=== PATIENT | female | born 1995 | race African-American/Black ===

== ENCOUNTER 2016-09-08 18:28 | Emergency (ER) | payer OTHER ==
[~2016-09-08 18:28] MED LIST: ACYCLOVIR400 MG PO; NO MEDICATIONS; VOLTAREN75 MG PO
== END 2016-09-08 19:03 | disposition home or self-care (01) ==
LOC: SED 18:28
DX: J02.0 Streptococcal pharyngitis (principal); F17.210 Nicotine dependence, cigarettes, uncomplicated
CPT/HCPCS: 87880; 99283

== ENCOUNTER 2017-02-04 19:35 | Emergency (ER) | payer OTHER ==
[~2017-02-04] VITALS: Ht 157.5 cm; Wt 79.4 kg
[2017-02-04] MEDS ORDERED: VALTREX500 MG (19:43)
== END 2017-02-04 21:04 | disposition home or self-care (01) ==
LOC: SED 19:35
DX: L02.31 Cutaneous abscess of buttock (principal); F17.210 Nicotine dependence, cigarettes, uncomplicated
CPT/HCPCS: 10060; 99283